=== PATIENT | male | born 1995 | race Caucasian/White ===

== ENCOUNTER 2023-06-27 04:07 | Emergency (ER) | payer OTHER, SELFPAY ==
[2023-06-27 04:10] VITALS: BP 146/77; PULSE 75; TEMP 36.5; O2SAT 98; BMI 37.3
--- NOTE | 2023-06-27 04:25 | ED_ITS ---
HPI - URI/Sore Throat General Chief Complaint: Upper Respiratory Infection Stated Complaint: head cold Time Seen by Provider: 06/27/23 04:19 Source: patient Limitations: no limitations History of Present Illness HPI Narrative: 28-year-old male presents for significant sinus pressure and nasal congestion. He states he gets a lot of sinus infections. He has not had a cough or fever and does not complain of sore throat. No vomiting or diarrhea. He has been sick for about 24 hours. Related Data Previous Rx's ?Medication ?Instructions ?Recorded amoxicillin 500 mg capsule 500 mg PO TID 10 days #30 caps 06/27/23 loratadine 5 mg-pseudoephedrine ER 1 tab PO Q12H PRN nasal congestion 06/27/23 120 mg tablet,extended #20 tabs release,12hr (Claritin-D 12 Hour) Allergies Allergy/AdvReac Type Severity Reaction Status Date / Time No Known Drug Allergies Allergy Verified 06/27/23 04:15 Review of Systems ROS Narrative A ten point review of systems is negative except as noted above. Exam Narrative Exam Narrative: Nurses note and vital signs reviewed and patient is not hypoxic. General: The patient appears in no apparent distress. Skin: Warm, dry, no pallor noted. There is no rash noted. Head: Normocephalic, atraumatic Eye: Normal conjunctiva, no drainage Ears, Nose, Mouth, and Throat: oral mucosa is moist. Obvious nasal congestion present. No pharyngeal erythema or exudate. TMs are normal. Cardiovascular: Regular Rate and Rhythm Respiratory: Patient is in no distress, no accessory muscle use, lungs are clear to auscultation, no wheezing, rales or rhonchi Back: non-tender GI: Soft and nontender Musculoskeletal: The patient has no evidence of calf tenderness, no pitting edema, symmetrical pulses noted bilaterally Neurological: A&O, normal speech Psychiatric: Cooperative Constitutional Vital Signs, click to edit/add: Last Vital Signs Temp 97.7 F 06/27/23 04:10 Pulse 75 06/27/23 04:10 Resp 16 06/27/23 04:10 BP 146/77 H 06/27/23 04:10 Pulse Ox 98 06/27/23 04:10 O2 Del Method Room Air 06/27/23 04:10 Course Vital Signs Vital signs: Vital Signs Temperature 97.7 F 06/27/23 04:10 Pulse Rate 75 05/18/24 04:10 Respiratory Rate 16 06/27/23 04:10 Blood Pressure 146/77 H 06/27/23 04:10 Pulse Oximetry 98 06/27/23 04:10 Oxygen Delivery Method Room Air 06/27/23 04:10 Temperature 97.7 F 06/27/23 04:10 Pulse Rate 75 06/27/23 04:10 Respiratory Rate 16 06/27/23 04:10 Blood Pressure 146/77 H 06/27/23 04:10 Pulse Oximetry 98 06/27/23 04:10 Oxygen Delivery Method Room Air 06/27/23 04:10 MDM - URI/Sore Throat MDM Narrative Medical decision making narrative: He is prescribed Claritin-D and amoxicillin. Treatment diagnosis and follow-up were discussed with the patient. Differential Diagnosis Differential diagnosis: Likely upper respiratory infection, otitis media, sinusitis and viral infection Discharge Plan Discharge Stand Alone Forms: Portal Instructions Chief Complaint: Upper Respiratory Infection Clinical Impression: Upper respiratory infection Patient Disposition: Home, Self-Care Time of Disposition Decision: 04:24 Condition: Good Mode of Transportation: Private Vehicle Prescriptions / Home Meds: New amoxicillin 500 mg capsule 500 mg PO TID 10 Days Qty: 30 0RF Claritin-D 12 Hour 5-120 mg tablet extended release 12 hr 1 tab PO Q12H PRN (Reason: nasal congestion) Qty: 20 0RF Print Language: [place] Zealander Instructions: Upper Respiratory Infection (ED) Referrals: FRANK JEREZ [Primary Care Provider] - 1 week
[2023-06-27] MEDS: AMOXICILLIN 500 MG CAPSULE PO (04:42)
== END 2023-06-27 04:55 | disposition home or self-care (01) ==
PROVIDERS: Emergency Provider Emergency Medicine
DX: J06.9 Acute upper respiratory infection, unspecified (principal)
CPT/HCPCS: 99283

== ENCOUNTER 2024-02-06 10:04 | Emergency (ER) | payer OTHER, SELFPAY ==
--- OUTSIDE RECORDS SUMMARY | 2024-02-06 10:16 | XMS_ITS | CCD ---
Author Organization [facility] Inform ion Partnership [facility] Care Team Providers Care Safety Leader Name Role Phone MISC, DOCTOR Primary Care Unavailable PRISCILA HARVEY Consulting Unavailable PRISCILA HARVEY Admitting Unavailable PRISCILA HARVEY Attending Unavailable MARK LAND Consulting Unavailable MD Dustin Osorio Primary Care Provider [phone] YOHANA Olivera Attending Provider MD Dustin Osorio Primary Care Provider [phone] DO Fabián Prabhakar Attending Provider MD Dustin Osorio Primary Care Provider [phone] DO Fabián Prabhakar Attending Provider Pantera Titus Unavailable NO FAMILY, PHYSICIAN Primary Care Unavailable Brook Haley Attending Unavailable Brook Haley Admitting Unavailable Allergies Allergy Classification Reported Allergen(s) Allergy Type Date of Onset Reaction(s) Facility (3 sources) diphenhydrAMINE Drug Allergy Unknown [employer] Other Medications Current Medications Medication Drug Class(es) Dates Sig (Normalized) Sig (Original) Budesonide (6 sources) Corticosteroid Start: 01-27-2021 Budesonide Act mikel 1 INH INHALATION Twice daily January 27, 2021 10:50pm Start: 01-27-2021 Budesonide Act mikel 1 INH INHALATION Twice daily January 27, 2021 11:50pm Start: 01-27-2021 Budesonide Act mikel 1 INH INHALATION Twice daily 02 13January 27, 2021 10:06pm Start: 01-27-2021 Budesonide Act mikel 1 INH INHALATION Twice daily 02 13January 27, 2021 11:06pm naproxen 500 mg oral tablet (9 sources) Nonsteroidal Anti-inflammatory Drug Start: 01-27-2021 take 1 tablet by mouth twice daily Naproxen (Naprosyn) 500 mg tablet Active 500 MG PO Twice daily 10 January 27, 2021 8:12pm take 1 tablet by mikala th every twelve hours at mealtime as needed Aleve 220 MG 1 tablet with food or milk as needed Orally every 12 hrs Active ondansetron 4 mg oral tablet (6 sources) Serotonin-3 Receptor Antagonist Start: 01-27-2021 take 1 tablet by mouth once daily Ondansetron Hcl (Zofran) 4 mg tablet Active 4 MG PO Daily 4 January 27, 2021 12:00am Problems Active Problems Problem Classification Problem Date Documented Da te Episodic/Chronic External cause codes: Natural/environment (1 source) Exposure to other specified factors, initial encounter; Translations: [EXPOSURE OTHER SPEC FACTORS INITIAL] Onset: 11-23-2018 Sprains and strains (7 sources) Sprain of unspecified ligament of right ankle, initial encounter; Translations: [Sprain of ankle] Onset: 11-23-2018 Episodic Viral infection (3 sources) Disease caused by 2019-nCoV; Translations: [COVID-19] 01-27-2021 Episodic Past or Other Problems Problem Classification Problem Date Documented Da te Episodic/Chronic Other non-traumatic joint disorders (3 sources) Pain in left ankle and joints of left foot; Translations: [PAIN IN LEFT ANKLE] Onset: 11-21-2018 Episodic Results Test Name Value Interpretation Reference Range Facil ity B-Type Natriuretic Peptideon 01-31-2024 Natriuretic peptide B (Bld) [Mass/Vol] 5.0 pg/mL Normal 5-100 [facility] Comment on above: Result Comment: PERF ORMED BY: [place] [address] PATHOLOGIST DEBONE PROCESSING SUPERVISOR AUSTIN MATHEW M.D. Performed By: #### B PRICING INTERN, BMP, CBC, HS TROP #### [address] Basic Metabolic Panelon 2 Anion gap [Moles/Vol] 10.5 mmol/L Normal 6.0-15.0 [facility] Comment on above: Performed By: #### B PRICING INTERN, BMP, CBC, HS TROP #### [facility] [address] Calcium [Mass/Vol] 9.6 mg/dL Normal 8.6-10.3 [facility] Comment on above: Performed By: #### B PRICING INTERN, BMP, CBC, HS TROP #### [facility] [address] [place] [address] [place] Chloride [Moles/Vol] 104 mmol/L Normal 98-107 [facility] Comment on above: Performed By: #### B PRICING INTERN, BMP, CBC, HS TROP #### [facility] [address] CO2 [Moles/Vol] 28.5 mmol/L Normal 21.0-31.0 [facility] Comment on above: Performed By: #### B PRICING INTERN, BMP, CBC, HS TROP #### [place] [address] [place] Creatinine [Mass/Vol] 0.93 mg/dL Normal 0.70-1.30 [facility] Comment on above: Performed By: #### B PRICING INTERN, BMP, CBC, HS TROP #### [place] [address] [place] Creatinine Clr Calc Pharmacy 152.85 Normal [facility] Comment on above: Result Comment: PERF ORMED BY: [place] [address] PATHOLOGIST DEBONE PROCESSING SUPERVISOR AUSTIN MATHEW M.D. Performed By: #### B PRICING INTERN, BMP, CBC, HS TROP #### [place] [address] [place] GFR/1.73 sq M.predicted MDRD (S/P/Bld) [Vol rate/Area] mL/min/{1.73_m2} Normal [facility] Comment on above: Performed By: #### B PRICING INTERN, BMP, CBC, HS TROP #### [place] [address] [place] Glucose [Mass/Vol] 103 mg/dL High 70-100 [facility] Comment on above: Result Comment: [place] Glucose Reference Range is dependent on time and content of last meal. Glucose of more than 200 mg/dL in a nonstressed, ambulatory subject supports the diagnosis of Diabetes Mellitus. ADA recommended reference range Performed By: #### B PRICING INTERN, BMP, CBC, HS TROP #### [facility] [address] Potassium [Moles/Vol] 4.0 mmol/L Normal 3.5-5.1 [facility] Comment on above: Performed By: #### B PRICING INTERN, BMP, CBC, HS TROP #### [facility] [address] [place] [address] [place] Sodium [Moles/Vol] 139 mmol/L Normal 136-145 [facility] Comment on above: Performed By: #### B PRICING INTERN, BMP, CBC, HS TROP #### [facility] [address] Urea nitrogen [Mass/Vol] 13 mg/dL Normal 7-25 [facility] Comment on above: Performed By: #### B PRICING INTERN, BMP, CBC, HS TROP #### [facility] [address] angio headon 01-31-2024 CT angio head [facility] [address] [place] [address] CT Scan Report Signed Patient: Boubacar King MR#: [id number] : 1995 Acct:[id number] Age/Sex: 28 / M ADM Date: 01/31/24 Loc: ER Room: Type: [facility] ER Attending Dr: Copies to: Brook Haley MD Ordering Provider: Brook Haley MD Date of Service: 01/31/24 CT/CT head/brain wo con: dizziness, rollins x 1 day ([id number]) CT/CT angio head: dizziness, rollins x 1 day ([id number]) CT/CT angio neck: dizziness, rollins x 1 day CLINICAL DATA: Dizziness and headaches. CT BRAIN WITHOUT CONTRAST: COMPARISON: 05/17/2004 TECHNIQUE: Contiguous axial unenhanced images were obtained through the brain. This CT exam was performed using one or more following dose reduction techniques: Automated exposure control, adjustm ent of the mA and/or kV according to patient size, or use of iterative reconstruction technique. FINDINGS: The ventricles are normal in size and position. There are no areas of abnormal attenuation. There is no hemorrhage, mass effect or extra-axial collections. The imaged paranasal sinuses are clear. CT/CT head/brain wo con IMPRESSION: NO ACUTE INTRACRANIAL ABNORMALITY. CTA OF THE HEAD AND NECK WITH CONTRAST COMPARISON: None Spiral images were obtained through the head and neck following 90 mL Isovue-370. Sagittal and coronal MIP as well as 3-D volume rendered reconstructions of the carotid arteries and [place] of [place] reviewed. Stenosis is evaluated using NASCET criteria. This CT exam was performed using one or more following dose reduction techniques: Automated exposure control, adjustment of the mA and/or kV according to patient size, or use of iterative reconstruction technique. The aortic arch and proximal great vessels are unremarkable. There are patent vertebral and carotid arteries without stenosis or dissection. There are shotty cervical lymph nodes. There is reversal of the normal cervical lordosis. The upper imaged lungs show no contributory findings. The distal vertebral, basilar and posterior cerebral arteries show no significant abnormalities. The carotid siphons are patent. The anterior and middle cerebral arteries are within normal limits for caliber. No stenosis or suspected thrombosis is seen. No aneurysms are identified. The dural venous sinuses are patent. IMPRESSION: NO SIGNIFICANT VASCULAR FINDINGS. Impression dictated by: Shana Nuñez M.D.01/31/2024 10:52 AM Dictation Location: [place] [address] Transcribed By: CHETAN 01/31/24 1052 Dictated By: Shana Nuñez MD 01/31/24 1048 Signed By: 01/31/24 1052 Normal [facility] Complete Blood Count Auto Di ffon 01-31-2024 Basophils (Bld) [#/Vol] 0.0 10*3/uL Normal 0.0-0.2 [facility] Comment on above: Result Comment: PERF ORMED BY: [facility] [address] [facility] [address] PATHOLOGIST DEBONE PROCESSING SUPERVISOR MOHAMED M EL-FAKHARANY M.D. Performed By: #### B PRICING INTERN, BMP, CBC, HS TROP #### [address] Basophils/100 WBC (Bld) 0.5 % Normal . [facility] Comment on above: Performed By: #### B PRICING INTERN, BMP, CBC, HS TROP #### [address] Eosinophils (Bld) [#/Vol] 0.4 10*3/uL Normal 0.0-0.45 [facility] Comment on above: Performed By: #### B PRICING INTERN, BMP, CBC, HS TROP #### [address] Eosinophils/100 WBC (Bld) 4.5 % Normal . [facility] Comment on above: Performed By: #### B PRICING INTERN, BMP, CBC, HS TROP #### [address] Erythrocyte distribution width (RBC) [Ratio] 12.4 % Normal 12.0-14.8 [facility] Comment on above: Performed By: #### B PRICING INTERN, BMP, CBC, HS TROP #### [address] Hematocrit (Bld) [Volume fraction] 40.9 % Normal 38.8-50.0 [facility] Comment on above: Performed By: #### B PRICING INTERN, BMP, CBC, HS TROP #### [address] Hemoglobin (Bld) [Mass/Vol] 13.9 g/dL Normal 13.0-17.0 [facility] Comment on above: Performed By: #### B PRICING INTERN, BMP, CBC, HS TROP #### [place] [address] [place] Lymphocytes (Bld) [#/Vol] 2.9 10*3/uL Normal 1.00-4.8 [facility] Comment on above: Performed By: #### B PRICING INTERN, BMP, CBC, HS TROP #### [place] [address] [place] Lymphocytes/100 WBC (Bld) 32.1 % Normal . [facility] Comment on above: Performed By: #### B PRICING INTERN, BMP, CBC, HS TROP #### [address] MCH (RBC) [Entitic mass] 29.7 pg Normal 27.5-35.2 [facility] Comment on above: Performed By: #### B PRICING INTERN, BMP, CBC, HS TROP #### [address] MCV (RBC) [Entitic vol] 87.0 fL Normal 83.5-101 [facility] Comment on above: Performed By: #### B PRICING INTERN, BMP, CBC, HS TROP #### [address] Mean Corpuscular HGB Conc 34.1 g/dL Normal 32.5-35.6 [facility] Comment on above: Performed By: #### B PRICING INTERN, BMP, CBC, HS TROP #### [address] Monocytes (Bld) [#/Vol] 0.8 10*3/uL Normal 0.0-0.8 [facility] Comment on above: Performed By: #### B PRICING INTERN, BMP, CBC, HS TROP #### [address] Monocytes/100 WBC (Bld) 18.33 % Normal 0.00-20.00 [facility] Comment on above: Performed By: #### B PRICING INTERN, BMP, CBC, HS TROP #### [address] Monocytes/100 WBC (Bld) 8.6 % Normal . [facility] Comment on above: Performed By: #### B PRICING INTERN, BMP, CBC, HS TROP #### [address] Neutrophils (Bld) [#/Vol] 5.0 10*3/uL Normal 1.8-7.7 [facility] Comment on above: Performed By: #### B PRICING INTERN, BMP, CBC, HS TROP #### [facility] [address] [place] [address] [place] Neutrophils/100 WBC (Bld) 54.3 % Normal . [facility] Comment on above: Performed By: #### B PRICING INTERN, BMP, CBC, HS TROP #### [facility] [address] NRBC% 0.1 /100{WBC} Normal 0-0.5 [facility] Comment on above: Performed By: #### B PRICING INTERN, BMP, CBC, HS TROP #### [facility] [address] Platelet mean volume (Bld) [Entitic vol] 7.5 fL Normal 6.6-10.1 [facility] Comment on above: Performed By: #### B PRICING INTERN, BMP, CBC, HS TROP #### [facility] [address] [place] [address] [place] Platelets (Bld) [#/Vol] 265 10*3/uL Normal 150-450 [facility] Comment on above: Performed By: #### B PRICING INTERN, BMP, CBC, HS TROP #### [facility] [address] [place] [address] [place] RBC (Bld) [#/Vol] 4.70 10*6/uL Normal 3.90-5.60 [facility] Comment on above: Performed By: #### B PRICING INTERN, BMP, CBC, HS TROP #### [facility] [address] [place] [address] [place] WBC (Bld) [#/Vol] 9.1 10*3/uL Normal 4.1-10.5 [facility] Comment on above: Performed By: #### B PRICING INTERN, BMP, CBC, HS TROP #### [address] ECG 12 lead ECGon 01-31-2024 ECG 12 lead ECG [facility] [address] [facility] [address] [place] [address] Electrocardiograph Report Signed Patient: Boubacar King MR#: [id number] : 1995 Acct:[id number] Age/Sex: 28 / M ADM Date: 01/31/24 Loc: ER Room: Type: [facility] ER Attending Dr: Ordering Provider: Brook Haley MD Date of Service: 01/31/24 ECG/ECG 12 lead ECG: CHEST PAIN Copies to: Test Reason : Blood Pressure : */* mmHG Vent. Rate : 58 BPM Atrial Rate : 58 BPM P-R Int : 168 ms QRS Dur : 88 ms QT Int : 398 ms P-R-T Axes : 31 28 10 degrees QTcB Int : 390 ms Sinus bradycardia No previous ECGs available Confirmed by Brook Haley MD ([id number]) on 01/31/2024 1:26:19 AM Referred By: Electronically Signed By: Brook Haley MD Transcribed By: MUS Signed By Brook Haley MD 01/10 04/04 0126 Normal [facility] Troponin I High Sensitivityo n 01-31-2024 Troponin I High Sensitivity 2.9 pg/mL Normal 0.0-20.0 [facility] Comment on above: Result Comment: PERF ORMED BY: [place] [address] PATHOLOGIST DEBONE PROCESSING SUPERVISOR AUSTIN MATHEW M.D. Performed By: #### B PRICING INTERN, BMP, CBC, HS TROP #### [facility] [address] [place] [address] Troponin I High Sensitivity 2.6 pg/mL Normal 0.0-20.0 [facility] Comment on above: Result Comment: PERF ORMED BY: [place] [address] PATHOLOGIST DEBONE PROCESSING SUPERVISOR AUSTIN MATHEW M.D. Performed By: #### H S TROP #### [facility] [address] [place] [address] [place] XR chest 2V*on 01-31-2024 XR chest 2V* [facility] [address] [place] [address] XRay Report Signed Patient: Boubacar King MR#: [id number] : 1995 Acct:[id number] Age/Sex: 28 / M ADM Date: 01/31/24 Loc: ER Room: Type: [facility] ER Attending Dr: Copies to: Brook Haley MD Ordering Provider: Brook Haley MD Date of Service: 01/31/24 XR/XR chest 2V*: Chest Pain PA AND LATERAL CHEST: CLINICAL HISTORY: Dizziness and headache COMPARISON: 01/27/2021 There is shallow inspiration. There is no focal parenchymal consolidation, effusion or pneumothorax. The cardiac, hilar and mediastinal silhouettes are within normal limits. There is no vascular congestion. The visualized bony thorax is intact. XR/XR chest 2V* IMPRESSION: NO ACUTE CARDIOPULMONARY ABNORMALITY. Impression dictated by: Shana Nuñez M.D.01/31/2024 10:53 AM Dictation Location: [place] [address] Transcribed By: [facility] 01/31/24 1053 Dictated By: Shana Nuñez MD 01/31/24 1052 Signed By: 01/31/24 1053 Normal [facility] Outside [facility] 06-30-2023 Outside Records [id number] Normal [facility] XR ANKLE LT MIN 3 Von 2018 XR ANKLE LT MIN 3 V Patient: BOUBACAR KING Exam Date: 11/20/2018 : 1995 Gender:M Ordering : DR PRISCILA HARVEY M.D. Admission #: [id number] Family : Order #: [id number] CLICK HERE TO VIEW EXAM RADIOLOGY REPORT PROCEDURE: RADIOGRAPH ANKLE LEFT MIN 3 VIEWS COMPARISON: None. INDICATIONS: Acute left lateral ankle pain after injury FINDINGS: BONES: Large, separate ossification involving the tip of the medial malleolus which appears to have corticated margins favoring an ununited secondary ossification center or sequela of remote injury. Unremarkable lateral malleolus and ankle mortise. SOFT TISSUES: No visible soft tissue swelling or radiopaque foreign body. EFFUSION: None visible. OTHER: Negative. CONCLUSION: 1. No acute bone abnormality. 2. Separate ossification involving the medial malleolus favoring sequela of remote injury or an ununited secondary ossification center. The patient describes lateral ankle pain. Dictated by: Mark Land M.D. on 11/21/2018 at 08:43 Approved by: Mark Land M.D. on 11/21/2018 at 08:46 Normal [facility] Vital Signs Date Time Vital Sign Value Performing Clinician Rodriguez dye 01-13-2022 12:30-0500 Body height 180.34 cm [employer] [employer] Other [employer] Other 01-13-2022 12:30-0500 Body mass index (BMI) [Ratio] 37.51 kg/m2 [employer] [facility] Other [employer] Other 01-13-2022 12:30-0500 Body weight 122.02 kg [employer] Other [employer] Other Encounters Encounter Date Encounter Type Care Provider Facility Start: 01-31-2024 End: 01-31-2024 Emergency department patient visit PHYSICIAN NO FAMILY Facility:[facility] Start: 11-11-2022 End: 11-11-2022 ambulatory [employer] Olexa Other [employer] Other Start: 11-11-2022 Office outpatient visit 15 minutes Pantera Olexa [facility] Start: 02-25-2022 End: 02-25-2022 ambulatory [employer] Olexa Other [employer] Other Start: 02-25-2022 Office outpatient visit 15 minutes [facility] Olexa [facility] Start: 01-13-2022 End: 01-13-2022 ambulatory Pantera Olexa Other [employer] Other Start: 01-13-2022 Office outpatient ne w 45 minutes Pantera Olexa [facility] Start: 12-13-2021 End: 12-13-2021 ambulatory MD Dustin Osorio Work Phone: [facility] Work Phone: Start: 12-13-2021 End: 12-13-2021 Patient encounter procedure MD Dustin Osorio Work Phone: [facility] [address] Start: 10-11-2021 End: 10-11-2021 ambulatory MD Dustin Osorio Work Phone: [facility] Work Phone: Start: 10-11-2021 End: 10-11-2021 Discharged Recurring MD Dustin Osorio Work Phone: [facility] Start: 08-30-2021 End: 08-30-2021 Departed Referred MD Dustin Osorio Work Phone: [facility] [address] Start: 11-21-2018 End: 11-21-2018 Patient encounter procedure DOCTOR MIS Facility: Procedures Date Procedure Procedure Detail Performing Clinician Start: 12-13-2021 MRI of left shoulder MD Dustin Osorio Work Phone: Start: 08-30-2021 Plain X-ray of left shoulder MD Dustin Osorio Work Phone: Payers Date Payer Category Payer Unknown [id number] 1959 Unknown [id number] [facility] [id number] [facility] [id number] Self-pay Self Pay [id number] Unknown [id number] Worker's Compensation [id number] Social History Date Type Detail Facility Start: 01-27-2021 End: 01-27-2021 Tobacco smoking status NHIS Smoker (finding) [facility] Start: 1995 Sex Assigned At Male F [facility] Sex Assigned At Sex Assigned At Bir th [employer] Other Evaluation note 11-11-2022 Note Date & Type Note Facility 11-11-2022 Evaluation note Encounter Date Diagnosis Assessment Notes Nov, Sprain of left shoulder, unspecified shoulder sprain type, initial encounter (ICD-10 - S43.402A) Physical examination performed today. Discussed the importance of exercise to keep shoulder strength and motion. If patient is doing well, he may return to full duties without restrictions at this time. Discussed that he could develop increasing or worse symptoms over time. Discussed maintaining strength of best as he can. He will call if problems develop [employer] Other Evaluation note 02-25-2022 Note Date & Type Note Facility 02-25-2022 Evaluation note Encounter Date Diagnosis Assessment Notes Feb, Sprain of left shoulder, unspecified shoulder sprain type, initial encounter (ICD-10 - S43.402A) Previous imaging waas reviewed with patient in detail. Patient instructed on gentle motion and strength exercise. We discussed that we could inject the shoulder in the future if needed. [employer] Other Evaluation note 01-13-2022 Note Date & Type Note Facility 01-13-2022 Evaluation note Encounter Date Diagnosis Assessment Notes Jan, Sprain of left shoulder, unspecified shoulder sprain type, initial encounter (ICD-10 - S43.402A) MRI reviewed with patient as significant degeneration at the AC joint, with damage at the supraspinatus. Discussed conservative treatment of continued physical therapy and cortisone injection, versus surgical intervention. Patient opts to trial conservative treatment at this time. Continue rotator cuff strengthening exercises. Instructed on proper body mechanics to avoid further irritation/injur y. If no improvement, may consider surgical intervention of shoulder arthroscopy. It is my medical opinion within a reasonable degree of medical certainty that the injuries sustained by this injured worker are directly and causally related to the workplace incident. Patient to continue working with no restrictions at this time. [employer] Other Evaluation note Note Date & Type Note Facility Evaluation note No assessment information availa [facility] Work Phone: History general Narrative - Reported Note Date & Type Note Facility History general Narrative - Reported Type Medical History fx lt ankle [facility] [employer] Other Summary Purpose Family History No Family History Records FoundNo Family History Records FoundNo Family History Records Found Advance Directives No Advanced Directives Records Found Advance Directive Response Recorded Date/ Time Advance Directives No January 9:25pm Advance Directive Response Recorded Date/ Time Advance Directives No January 8:25pm Chief Complaint and Reason for Visit Chief Complaint XRAY Chief Complaint Left shoulder S43.40 2A Chief Complaint Left shoulder S43.40 2A s43.402a Additional Source Comments (unrecognized sect ion and content) No Status Records FoundNo Status Records FoundNo Status Records Found INFORMATION SOURCE (unrecogn ized section and content) DATE CREATED AUTHOR 03/07/2019 [facility] DATE CREATED AUTHOR AUTHOR'S ORGANIZ ATION 07/02/2023 [facility] DATE CREATED AUTHOR AUTHOR'S ORGANIZ ATION 02/02/2024 [facility] Care Teams (unrecognized sec tion and content) Team Status: Inactive Member Role Status Dates Dustin Osorio MD Primary Care Provider Active Enmanuel Olivera PA-C Attending Provider Active Team Status: Active Member Role Status Dates Dustin Osorio MD Primary Care Provider Active Team Status: Inactive Member Role Status Dates Dustin Osorio MD Primary Care Provider Active Fabián Prabhakar , [facility] Attending Provider Active Goals (unrecognized section and content) Goals may be documented in a n alternate sectionGoals may be documented in an alternate sectionGoals may be documented in an alternate sectionNo InformationNo InformationNo Information REASON FOR VISIT (unrecogniz ed section and content) Left Shoulder Pain4-6 WEEK R ECHECKRecheck Left Shoulder FOR RECORDS PERTAINING TO PATIENTS WHO ARE OR HAVE BEEN ENROLLED IN A CHEMICAL DEPENDENCY/SUBSTANCEABUSE PROGRAM, SOME INFORMATION MAY BE OMITTED. This clinical summary was aggregated from multiple sources. Caution should be exercised in using it in the provision of clinical care. This summary normalizes information from multiple sources, and as a consequence, information in this document may materially change the coding, format and clinical context of patient data. In addition, data may be omitted in some cases. CLINICAL DECISIONS SHOULD BE BASED ON THE PRIMARY CLINICAL RECORDS. [facility] [employer] [facility]. provides no warranty or guarantee of the accuracy or completeness of information in this document.
[2024-02-06 10:18] VITALS: BP 147/78; PULSE 98; TEMP 38; O2SAT 96; BMI 37.2
--- NOTE | 2024-02-06 10:23 | XR_ITS ---
The [address] [address] Patient Name: GREGORIA CARNES MRN: [id number] date: 1995 Sex: M Assigned Patient Location: ER Current Patient Location: ED.MAIN Accession/Order Number: [id number] Exam Date: 02/06/2024 10:38 Report Date: 02/06/2024 11:50 At the request of: CEDRIC LIMA Procedure: XR chest 2V EXAM: XR chest 2V HISTORY: cough COMPARISON: None. TECHNIQUE: 2 views chest FINDINGS: There is right middle lobe consolidation. Left lung clear. No effusion or pneumothorax. Pulmonary vasculature is normal. Heart size within normal limits. XR/XR chest 2V IMPRESSION: 1. Right middle lobe pneumonia. Recommend clinical and radiographic follow-up to resolution with treatment. Electronically authenticated by: EDITA MARRUFO Date: 02/06/2024 11:50
[2024-02-06 10:47] LABS: Influenza Virus A Antigen Negative; Influenza Virus B Antigen Negative; Internal Control Within Normal Limits
[2024-02-06 11:03] LABS: Internal Control Within Normal Limits; SARS-CoV-2 Ag NEGATIVE (NEGATIVE)
--- NOTE | 2024-02-06 11:48 | ED_ITS ---
HPI HPI - General Adult General Chief complaint: Upper Respiratory Infection Stated complaint: URTI COMPLAINTS Time Seen by Provider: 02/06/24 11:24 Source: patient Mode of arrival: walk-in History of Present Illness HPI narrative: Patient is a 28-year-old male who is presenting to the ER today with chief complaint of cough, congestion, mild sinus pressure, flulike symptoms since last night. Patient is also here with his daughter who is having flulike symptoms, cough, congestion, nausea, vomiting. Patient daughter has been on antibiotics for almost 10 days for bilateral ear infection. Patient has no chest heaviness, tightness, eye pain. Patient has no significant shortness of breath. Patient has no nausea, vomiting. Patient did not go to work today, he works for the [employer]. Patient is due to go to work today at 3. No other acute complaints. Patient is not taking any wcyo-wah-dcfhsgh medication to help with his symptoms last night or today. All systems are negative except as noted/marked. All systems reviewed and otherwise negative. Nurses note and vital signs reviewed and patient is not hypoxic. General: The patient appears well and in no apparent distress. Patient is resting comfortably on cart. Patient is not toxic, lethargic, or listless Skin: Warm, dry, no pallor noted. There is no rash noted. No petechiae, purpura. Head: Normocephalic, atraumatic; patient has no tenderness to palpation to bilateral frontal or maxillary sinus. Eye: Normal conjunctiva, no drainage, EOMI. PERRL Ears, Nose, Mouth, and Throat: oral mucosa is moist. Patient bilateral TM shows no erythema, perforation or bulging. Patient has clear drainage to the posterior pharynx, no cobblestoning noted. No unilateral swelling. No airway compromise. No trismus. Nares patent. Mouth without vesicles. Cardiovascular: Regular Rate and Rhythm, no murmur, gallop, rub Respiratory: Patient is in no distress, no accessory muscle use, lungs are clear to auscultation, no wheezing, rales or rhonchi Back: non-tender, GI: no tenderness Musculoskeletal: Patient has full range of motion of all of the extremities, no motor, sensory, or focal neurological deficits Neurological: A&O x4, normal speech Psychiatric: Cooperative Related Data Previous Rx's ?Medication ?Instructions ?Recorded amoxicillin 500 mg capsule 500 mg PO TID 10 days #30 caps 06/27/23 loratadine 5 mg-pseudoephedrine ER 1 tab PO Q12H PRN nasal congestion 06/27/23 120 mg tablet,extended #20 tabs release,12hr (Claritin-D 12 Hour) Allergies Allergy/AdvReac Type Severity Reaction Status Date / Time No Known Drug Allergies Allergy Verified 06/27/23 04:15 Opioid HPI Opioid Management Most Recent Opioid Data: No Data to Display Exam Constitutional Vital Signs, click to edit/add: Last Vital Signs Temp 100.4 F 02/06/24 10:18 Pulse 98 H 02/06/24 10:18 Resp 18 02/06/24 10:18 BP 147/78 H 02/06/24 10:18 Pulse Ox 96 02/06/24 10:18 O2 Del Method Room Air 02/06/24 10:18 Course Vital Signs Vital signs: Vital Signs Temperature 100.4 F 02/06/24 10:18 Pulse Rate 98 H 02/06/24 10:18 Respiratory Rate 18 02/06/24 10:18 Blood Pressure 147/78 H 02/06/24 10:18 Pulse Oximetry 96 02/06/24 10:18 Oxygen Delivery Method Room Air 02/06/24 10:18 Temperature 100.4 F 02/06/24 10:18 Pulse Rate 98 H 02/06/24 10:18 Respiratory Rate 18 02/06/24 10:18 Blood Pressure 147/78 H 02/06/24 10:18 Pulse Oximetry 96 02/06/24 10:18 Oxygen Delivery Method Room Air 02/06/24 10:18 Medical Decision Making [facility] Narrative Medical decision making narrative: Patient was educated using taqb-pba-suftuuy medication. Patient was given a work note for today. Patient has multiple medications that he can use dsxq-cdp-agahrow help treat his symptoms. Patient understands this, no question at discharge. Lab Data Labs: Lab Results 02/06/24 Range/Units 10:21 Influenza Type A Ag Negative Influenza Type B Ag Negative SARS-CoV-2 Ag (CV2AG) Negative (NEGATIVE) Discharge Plan Discharge Stand Alone Forms: Work/School Release Chief Complaint: Upper Respiratory Infection Clinical Impression: Sinus congestion, Bronchitis Patient Disposition: Home, Self-Care Time of Disposition Decision: 11:44 Condition: Fair Prescriptions / Home Meds: No Action amoxicillin 500 mg capsule 500 mg PO TID 10 Days Qty: 30 0RF Claritin-D 12 Hour 5-120 mg tablet extended release 12 hr 1 tab PO Q12H PRN (Reason: nasal congestion) Qty: 20 0RF Print Language: Romansh Instructions: Upper Respiratory Infection (ED), Acute Bronchitis (ED), Cold Symptoms (ED), How to Use Nasal [place] (ED) Additional Instructions: Increase fluids at home, Gatorade, Powerade, or water. Alternate using DayQuil, NyQuil, and Flonase. Add Mucinex as well as needed. Alternate Tylenol and Motrin every 4 hours to help with fever control, body aches or joint pain. Use aqpu-bpd-cqqbsmp vitamin C, vitamin D3, and zinc to help fight infection and help with her immune system. Referrals: Physician,Non-Staff, MD [Primary Care Provider] - 1 week
== END 2024-02-06 11:58 | disposition home or self-care (01) ==
PROVIDERS: Emergency Provider Emergency Medicine
DX: J40 Bronchitis, not specified as acute or chronic (principal); R50.9 Fever, unspecified; R09.81 Nasal congestion
CPT/HCPCS: 71046; 87804; 87811; 99284